=== PATIENT | female | born 1985 | race Caucasian/White ===

== ENCOUNTER 2022-10-30 06:57 | Day surgery (SDC) | payer MEDICAID ==
[~2022-10-30 06:57] MED LIST: Dextrose 5%-0.45% NaCl 1,000 ML IV SCH
[2022-10-30] MEDS ORDERED: Midazolam 1 MG/ML 2 ML SDV IV ONE ×3 (06:58→08:03)
[2022-10-30] MEDS ORDERED: fentaNYL 100 MCG/2 ML SDV IV ONE ×3 (06:58→08:02)
[2022-10-30] MEDS ORDERED: fentaNYL 100 MCG/2 ML SDV ONE (07:58)
[2022-10-30] MEDS ORDERED: Midazolam 1 MG/ML 2 ML SDV ONE (07:58)
== END 2022-10-30 09:30 | disposition home or self-care (01) ==
LOC: DL.ENDO 06:57
PROVIDERS: ATTEND Internal Medicine Gastroenterology
DX: R12 Heartburn (principal); Z86.16 Personal history of COVID-19; Z98.890 Other specified postprocedural states
CPT/HCPCS: 87077; J2250; J3010; J7042